=== PATIENT | female | born 1995 | race Caucasian/White ===

== ENCOUNTER → 2017-06-21 | Outpatient (CLI) | payer OTHER | LOC: BMCIMAGING 13:32 | PROVIDERS: ATTEND Family Medicine | DX: R19.09 Other intra-abdominal and pelvic swelling, mass and lump (principal); N93.9 Abnormal uterine and vaginal bleeding, unspecified ==

== ENCOUNTER 2017-07-07 09:28 | Day surgery (SDC) | payer OTHER ==
[2017-07-07] MEDS ORDERED: ceFAZolin 2 GM/SWFI 2 GM/20 ML SYR IVP ONE (09:40)
[2017-07-07] MEDS ORDERED: LR 1,000 ML IV ONE (09:41)
[2017-07-07] MEDS ORDERED: LIDOCAINE 1% 2 ML INJ ID PRN (09:41)
[2017-07-07] MEDS ORDERED: ceFAZolin 2 GM/DEXTROSE 100 ML IV ONE (10:00)
[2017-07-07] MEDS ORDERED: BUPIVACAINE/EPI 0.5% 30 ML SDV ONE (10:45)
[2017-07-07] MEDS ORDERED: MIDAZOLAM 2 MG/2 ML VIAL IVP ONE (12:01)
--- NOTE | 2017-07-07 12:04 | PDANEPAE ---
ANE History of Present Illness 22 year old with groin mass ANE Past Medical History - Cardiovascular History Hx Hypertension: No Hx Arrhythmias: No Hx Chest Pain: No Hx Coronary Artery / Peripheral Vascular Disease: No Hx CHF / Valvular Disease: No Hx Palpitations: No - Pulmonary History Hx COPD: No Hx Asthma/Reactive Airway Disease: No Hx Recent Upper Respiratory Infection: No Hx Oxygen in Use at Home: No Hx Sleep Apnea: No Sleep Apnea Screening Result - Last Documented: Negative Pulmonary History Comment: HX OF URI'S - Neurologic History Hx Cerebrovascular Accident: No Hx Seizures: No Hx Dementia: No - Endocrine History Hx Diabetes: No Hypothyroid: Yes Endocrine History Comment: HYPOTHYROIDISM - Renal History Hx Renal Disorders: No - Liver History Hx Hepatic Disorders: No - Neurological & Psychiatric Hx Hx Neurological and Psychiatric Disorders: Yes Neurological / Psychiatric History Comment: ANXIETY- WAS ON LEXAPRO - Cancer History Hx Cancer: No - Congenital Disorder History Hx Congenital Disorders: No - GI History Hx Gastrointestinal Disorders: Yes Gastrointestinal History Comment: HX OF EGD'S AND COLONOSCOPIES. IBD. POSS ULCERATIVE COLITIS- WILL BE GOING TO [facility] IN A WEEK FOR F/U. CHRONIC ABD PAIN - Other Health History Other Health History: WEARS GLASSES - Chronic Pain History Chronic Pain: Yes (ABD PAIN) - Surgical History Prior Surgeries: COLONOSCOPIES. EGD'S ANE Review of Systems Review of systems is: negative Review of Systems: - Exercise capacity METS (RN): 4 METS ANE Patient History - Allergies Allergies/Adverse Reactions: No Known Allergies Allergy (Verified 07/06/17 17:09) - Home Medications Home medications: home medication list seen and reviewed Home Medications: Synthroid 07/06/17 [Last Taken Unknown] VYVANSE PRN 07/06/17 [Last Taken Unknown] - NPO status NPO Status: no food or drink >8 hours NPO Since - Liquids (Date): 07/06/17 NPO Since - Liquids (Time): 23:00 NPO Since - Solids (Date): 07/06/17 NPO Since - Solids (Time): 23:00 - Anes Hx Anes Hx: no prior problems - Smoking Hx Smoking Status: Former smoker - Alcohol Use Alcohol Use: Occasionally - Family Anes Hx Family Hx Anesthesia Complications: NONE ANE Labs/Vital Signs - Vital Signs Blood Pressure: 112/77 Heart Rate: 65 Respiratory Rate: 16 O2 Sat (%): 95 Height: 160.02 cm Weight: 54.431 kg ANE Physical Exam - Airway Neck exam: FROM Mallampati Score: Class 1 - Pulmonary Pulmonary: no respiratory distress, clear to auscultation - Cardiovascular Cardiovascular: regular rate and rhythym - ASA Status ASA Status: II ANE Anesthesia Plan Anesthesia Plan: GA w LMA
[2017-07-07] MEDS ORDERED: fentaNYL 100 MCG/2 ML INJ ONE (12:28)
[2017-07-07] MEDS ORDERED: PROPOFOL 200 MG/20 ML VIAL ONE (12:28)
--- NOTE | 2017-07-07 13:02 | POSTOPPROG ---
Post Op Note Date of Operation: 07/07/17 Surgeon: Tea Echavarria Anesthesiologist: warm Anesthesia: GET(General Endotracheal) Pre-op Diagnosis: Left groin lesions Post-op Diagnosis: left groin lesionsq Indication: 22 yo with groin lesions Procedure: wle 3x1 cm l groin Findings: 2 distinct lesions Inf/Abcess present in the surg proc area at time of surgery?: Yes Depth: Superfical (Skin SQ) EBL: Minimal Specimen(s): groin lesions
[2017-07-07] MEDS ORDERED: fentaNYL 100 MCG/2 ML INJ IVP PRN (13:17)
[2017-07-07] MEDS ORDERED: HYDROCODONE/APAP 5/325 TAB PO PRN (13:17)
[2017-07-07] MEDS ORDERED: ACETAMINOPHEN 500 MG TAB PO PRN (13:17)
[2017-07-07] MEDS ORDERED: ONDANSETRON 4 MG/2 ML VIAL IVP PRN (13:17)
[2017-07-07] MEDS ORDERED: NALOXONE HCL 0.4 MG/ML INJ IVP PRN (13:17)
--- NOTE | 2017-07-07 13:18 | POSTANESTH ---
Post Anesthetic Evaluation Cardiovascular Status: Normal, Stable Respiratory Status: Normal, Stable, Requires Airway Assist Pain Control: Adequate, Prn Tx Ordered Nausea/Vomiting Control: Adequate, Prn Tx Ordered Complications Possibly Related to Anesthesia: None Noted
--- NOTE | 2017-07-07 13:22 | GOP ---
[f rep st] OPERATIVE REPORT DATE OF OPERATION: 07/07/2017 SURGEON: Tea Echavarria MD ANESTHESIA: Dr. Gregorio Paiz Warm/General. PREOPERATIVE DIAGNOSIS: Left groin mass. POSTOPERATIVE DIAGNOSIS: Left groin mass. PROCEDURE PERFORMED: Excision of left groin mass 3 x 1 cm. FINDINGS: 2 lesions in left groin SPECIMENS: Left groin mass. ESTIMATED BLOOD LOSS: 5 cc. INDICATIONS: The patient is a 22-year-old woman who developed 2 lesions in her groin. She had incision and drainage performed which did not yield any material. Ultrasound was performed which showed some reactive lymphadenopathy. It appeared to be a furuncle to me. DESCRIPTION OF PROCEDURE: Patient was brought into the operating room, placed supine on the table and general anesthesia was administered. She was placed in a lithotomy position. The area was prepped and draped in the usual sterile fashion. I infiltrated the area with 0.5% Marcaine prior to making incision. I made an ellipse around the lesions. I did not enter either of them. Hemostasis was achieved. I then closed the incision with 3-0 Vicryl followed by 4-0 Monocryl, Dermabond applied. She was taken out of lithotomy position, awakened in the operating room, extubated and transferred to PACU in stable condition. /[id number]/MODL MTDD
[2017-07-07 14:46] VITALS: BP 121/82
== END 2017-07-07 14:40 | disposition home or self-care (01) ==
LOC: FSGY 09:28
PROVIDERS: ATTEND Surgery
PROC: 0JBC0ZZ Excision of Pelvic Region Subcutaneous Tissue and Fascia, Open Approach (ICD-10-PCS; principal; 2017-07-07 10:45)
DX: L02.214 Cutaneous abscess of groin (principal); L02.92 Furuncle, unspecified; L02.93 Carbuncle, unspecified
CPT/HCPCS: J0690; J2250; J2704; J3010